=== PATIENT | male | born 1950 | race Caucasian/White ===

== ENCOUNTER 2017-02-06 06:27 | Inpatient (IN) | payer OTHER ==
[~2017-02-06] VITALS: Ht 177.8 cm; Wt 88.6 kg
[2017-02-06] VITALS (49 sets, daily range): BP systolic 109–171; BP diastolic 59–108
[2017-02-06] MEDS ORDERED: ONDANSETRON HCL 4 MG/2 ML VIAL ONE (06:33)
[2017-02-06] MEDS ORDERED: MORPHINE SULF INJ 2 MG/ML SYRINGE 1ML ONE (06:33)
[2017-02-06] MEDS ORDERED: SODIUM CHLORIDE 0.9% 1,000 ML IV ONE (06:38)
[2017-02-06] MEDS ORDERED: LIDOCAINE 2%HCL (LOCAL ANESTH.) INJ 20ML MDV ONE (06:42)
[2017-02-06] MEDS ORDERED: IODIXANOL 320MG/ML 100ML BTL IV ONE (06:42)
[2017-02-06] MEDS ORDERED: HEPARIN SODIUM (PORCINE) 5000 UNITS/ML 1ML VIAL IV ONE ×2 (06:45)
[2017-02-06] MEDS ORDERED: NITROGLYCERIN 0.4 MG SL TAB SL ONE ×2 (06:45→10:00)
[2017-02-06] MEDS ORDERED: ATO40T PO (06:47)
[2017-02-06] MEDS ORDERED: SULI200T4 PO (06:47)
[2017-02-06] MEDS ORDERED: HYDR-4663 PO (06:47)
[2017-02-06] MEDS ORDERED: ASPI-231 PO (06:47)
[2017-02-06] MEDS ORDERED: LISI-646 PO (06:47)
[2017-02-06 06:48] LABS: Basophils # (auto) 0.1 uL; Basophils % (auto) 0.9 % (0.0-2.0); CONDITION Y; Eosinophils # (auto) 0.2 uL; Eosinophils % (auto) 2.7 % (0.0-7.0); Hematocrit 48.2 % (41.0-53.0); Hemoglobin 16.3 g/dL (13.5-17.5); Lymphocytes # (auto) 2.5 uL; Lymphocytes % (auto) 33.7 % (10.0-50.0); Mean Corpuscular Hemoglobin 34.2 pg (28.0-32.0); Mean Corpuscular Hgb Conc. 33.8 g/dL (32.0-36.0); Mean Corpuscular Volume 101.2 fL (80.0-100.0); Mean Platelet Volume 10.6 fL (7.4-10.4); Monocytes # (auto) 0.6 uL; Monocytes % (auto) 7.9 % (0.0-12.0); Neutrophils # (auto) 4.1 uL; Neutrophils % (auto) 54.8 % (37.0-80.0); Platelet Count (auto) 230 10^3/uL (140-450); Red Cell Distribution Width 13.7 % (11.6-16.0); White Blood Cell 7.5 10^3/uL (4.4-10.8)
[2017-02-06 07:02] LABS: INR 0.98 (0.9-1.15); Partial Thromboplastin Time 23.9 sec (22.64-33.71); Prothrombin Time 10.7 sec (9.37-12.3)
[2017-02-06] MEDS ORDERED: MIDAZOLAM HCL 1MG/1ML-2 ML VIAL ONE (07:02)
[2017-02-06] MEDS ORDERED: fentaNYL CITRATE 100 MCG/2 ML VL ONE (07:02)
[2017-02-06] MEDS ORDERED: ANGIOMAX 250 MG VIAL IV ONE ×2 (07:02→07:39)
[2017-02-06] MEDS ORDERED: SODIUM CHL 0.9% 50 ML ONE ×2 (07:03→07:39)
[2017-02-06 07:12] LABS: BUN/Creatinine Ratio 30.8; Bilirubin, Total 0.8 mg/dL (0.2-1.0); Calcium 9.2 mg/dL (8.5-10.1); Magnesium 2.3 mg/dL (1.6-2.6); Potassium 3.6 mmol/L (3.5-5.1); Total Protein 7.3 g/dL (6.4-8.2)
[2017-02-06 07:32] LABS: B-Type Natriuretic Peptide 10.2 pg/mL (0-100); Temperature: 22.7 C (20.0-25.0)
[2017-02-06] MEDS ORDERED: ASPirin 325 MG TAB ONE (07:35)
[2017-02-06] MEDS ORDERED: CLOPIDOGREL 300 MG TAB ONE (07:35)
[2017-02-06] MEDS ORDERED: SODIUM CHLORIDE 0.9% 1,000 ML IV SCH (08:05)
[2017-02-06] MEDS ORDERED: HYDROcodone-ACET 5/325MG TAB PO PRN (08:15)
[2017-02-06] MEDS ORDERED: ONDANSETRON HCL 4 MG/2 ML VIAL IV PRN (08:15)
[2017-02-06] MEDS ORDERED: LORazepam 0.5 MG TAB PO PRN (08:15)
[2017-02-06] MEDS ORDERED: MORPHINE SULF INJ 2 MG/ML SYRINGE 1ML IV PRN ×4 (08:15)
[2017-02-06] MEDS ORDERED: ACETAMINOPHEN 500 MG TAB PO PRN (08:15)
[2017-02-06] MEDS ORDERED: NITROGLYCERIN 0.4 MG SL TAB SL PRN ×3 (08:15)
[2017-02-06] MEDS ORDERED: ZOLPIDEM TARTRATE 5 MG TAB PO PRN (08:15)
[2017-02-06] MEDS ORDERED: CLOPIDOGREL BISULFATE 75 MG TAB PO SCH (10:00)
[2017-02-06] MEDS: POTASSIUM CHL 20 Meq TABLET PO SCH (10:15)
[2017-02-06] MEDS: HCTZ 25 MG TAB PO SCH (10:16)
[2017-02-06] MEDS: ISOSORBIDE MONONITRATE 60 MG TAB PO SCH (10:17)
[2017-02-06] MEDS: LISINOPRIL 10 MG TAB PO SCH (10:17)
[2017-02-06] MEDS: METOPROLOL SUCCINATE XL 50 MG TAB PO SCH (10:19)
[2017-02-06] MEDS: SODIUM CHLOR 0.9% PF (SALINE LOCK) 10ML VIAL IV SCH ×2 (13:48→22:03)
[2017-02-06] MEDS: HYDROcodone-ACET 5/325MG TAB PO PRN (14:26)
[2017-02-06] MEDS: ATORVASTATIN 20 MG TAB PO SCH (21:30)
[2017-02-07] VITALS (29 sets, daily range): BP systolic 106–146; BP diastolic 57–93
[2017-02-07] MEDS: HYDROcodone-ACET 5/325MG TAB PO PRN ×4 (00:42→22:32)
[2017-02-07 05:40] LABS: Cholesterol 113 mg/dL (< 200); HDL Cholesterol 47 mg/dL (40-59); LDL Cholesterol 62 mg/dL (< 100); Triglycerides 87 mg/dL (< 150)
[2017-02-07] MEDS: SODIUM CHLOR 0.9% PF (SALINE LOCK) 10ML VIAL IV SCH ×3 (06:01→22:00)
[2017-02-07 06:19] LABS: B-Type Natriuretic Peptide 71.9 pg/mL (0-100); Temperature: 21.3 C (20.0-25.0)
[2017-02-07 06:22] LABS: Basophils # (auto) 0 uL; Basophils % (auto) 0.3 % (0.0-2.0); CONDITION Y; Eosinophils # (auto) 0.1 uL; Eosinophils % (auto) 1.4 % (0.0-7.0); Hematocrit 43.6 % (41.0-53.0); Hemoglobin 14.9 g/dL (13.5-17.5); Lymphocytes % (auto) 21.5 % (10.0-50.0); Mean Corpuscular Hemoglobin 34.5 pg (28.0-32.0); Mean Corpuscular Hgb Conc. 34.1 g/dL (32.0-36.0); Mean Corpuscular Volume 101.3 fL (80.0-100.0); Mean Platelet Volume 10.7 fL (7.4-10.4); Monocytes # (auto) 0.6 uL; Monocytes % (auto) 6.1 % (0.0-12.0); Neutrophils # (auto) 6.6 uL; Neutrophils % (auto) 70.7 % (37.0-80.0); Platelet Count (auto) 213 10^3/uL (140-450); Red Cell Distribution Width 13.7 % (11.6-16.0); White Blood Cell 9.3 10^3/uL (4.4-10.8)
[2017-02-07 06:30] LABS: Potassium 4.5 mmol/L (3.5-5.1)
[2017-02-07 06:36] LABS: BUN/Creatinine Ratio 22.8
[2017-02-07] MEDS: ASPirin-EC 81 mg tab PO SCH (10:06)
[2017-02-07] MEDS: POTASSIUM CHL 20 Meq TABLET PO SCH (10:06)
[2017-02-07] MEDS: METOPROLOL SUCCINATE XL 50 MG TAB PO SCH (10:06)
[2017-02-07] MEDS: LISINOPRIL 10 MG TAB PO SCH (10:07)
[2017-02-07] MEDS: ISOSORBIDE MONONITRATE 60 MG TAB PO SCH (10:07)
[2017-02-07] MEDS: CLOPIDOGREL BISULFATE 75 MG TAB PO SCH (10:07)
[2017-02-07] MEDS: HCTZ 25 MG TAB PO SCH (10:08)
[2017-02-07] MEDS: ATORVASTATIN 20 MG TAB PO SCH (22:32)
[2017-02-08 05:00] VITALS: BP 130/99
[2017-02-08] MEDS: SODIUM CHLOR 0.9% PF (SALINE LOCK) 10ML VIAL IV SCH ×2 (06:19→14:00)
[2017-02-08] MEDS: HYDROcodone-ACET 5/325MG TAB PO PRN ×2 (06:24→12:47)
[2017-02-08 09:00] VITALS: BP 128/82
[2017-02-08] MEDS: CLOPIDOGREL BISULFATE 75 MG TAB PO SCH (09:42)
[2017-02-08] MEDS: LISINOPRIL 10 MG TAB PO SCH (09:43)
[2017-02-08] MEDS: ASPirin-EC 81 mg tab PO SCH (09:43)
[2017-02-08] MEDS: POTASSIUM CHL 20 Meq TABLET PO SCH (09:43)
[2017-02-08] MEDS: METOPROLOL SUCCINATE XL 50 MG TAB PO SCH (09:43)
[2017-02-08] MEDS: HCTZ 25 MG TAB PO SCH (09:44)
[2017-02-08] MEDS: ISOSORBIDE MONONITRATE 60 MG TAB PO SCH (09:44)
[2017-02-08 13:00] VITALS: BP 115/79
[2017-02-08 17:00] VITALS: BP 99/73
[2017-02-08 18:02] VITALS: BP 99/73
== END 2017-02-08 18:30 | disposition home or self-care (01) | DRG 247 ==
LOC: EDBD 06:27 → ER 06:30 → CATH 1 06:36 → ICU WEST 07:58 → TELE-WESTW 02-07 15:11
PROVIDERS: ADMIT Internal Medicine Cardiovascular Disease; ATTEND Internal Medicine Cardiovascular Disease
PROC: 027034Z Dilation of Coronary Artery, One Artery with Drug-eluting Intraluminal Device, Percutaneous Approach (ICD-10-PCS; principal; 2017-02-06)
PROC: B41FYZZ Fluoroscopy of Right Lower Extremity Arteries using Other Contrast (ICD-10-PCS; 2017-02-06)
PROC: 4A023N7 Measurement of Cardiac Sampling and Pressure, Left Heart, Percutaneous Approach (ICD-10-PCS; 2017-02-06)
PROC: B2111ZZ Fluoroscopy of Multiple Coronary Arteries using Low Osmolar Contrast (ICD-10-PCS; 2017-02-06)
DX: I21.02 ST elevation (STEMI) myocardial infarction involving left anterior descending coronary artery (principal); I10 Essential (primary) hypertension; F17.210 Nicotine dependence, cigarettes, uncomplicated; I25.10 Atherosclerotic heart disease of native coronary artery without angina pectoris; E66.9 Obesity, unspecified; Z68.28 Body mass index [BMI] 28.0-28.9, adult; Z79.82 Long term (current) use of aspirin; Z79.899 Other long term (current) drug therapy; Z90.49 Acquired absence of other specified parts of digestive tract; Z71.6 Tobacco abuse counseling
CPT/HCPCS: 92928; 92941; 93458; 96374; 99291; G0278; 36415; 71010; 80048; 80053; 80061; 82550; 83036; 83735; 83880; 84443; 84484; 85025; 85610; 85730; 86850; 86900; 86901; 87081; 93005; 93306; 99152; 99153; C1874; C1887; J2250; J2405; Q9967